=== PATIENT | male | born 1955 | race Hispanic/Latino ===

== ENCOUNTER 2021-06-20 23:27 | Emergency (ER) | payer SELFPAY ==
[~2021-06-20] VITALS: Ht 170.2 cm; Wt 72.0 kg
[~2021-06-20 23:27] MED LIST: FLEXERIL PO; LEVOTHYROXINE25 MCG PO; LIPITOR10 M1 PO; LISINOPRIL10 MG PO; METFORMIN1000 MG PO; NAPROSYN500 MG PO
[2021-06-21 00:38] LABS: IMMATURE GRANULOCYTES 0.5 % (0.0-5.0); MEAN CORPUSCULAR HGB CONC 30.9 g/dL CAL (32.0-36.0); NEUT# 6.11 thou/uL (1.82-7.42); RED BLOOD COUNT 2.87 mill/uL (4.70-6.10); RED CELL DISTRI WIDTH 14.8 % (11.5-15.5)
[2021-06-21 00:42] LABS: HEMATOCRIT 28.8 % (39.0-50.0); HEMOGLOBIN 8.9 g/dl (14.0-18.0); MEAN CELL VOLUME 100.3 fL CALC (80.0-100.0)
[2021-06-21 00:57] LABS: ALBUMIN 4.4 g/dL (3.2-5.0); TOTAL PROTEIN 7.8 g/dL (6.3-8.2)
[2021-06-21 00:59] LABS: ACT PARTIAL THROMBO TIME 25.2 SECONDS (20.0-32.5); PROTHROMBIN TIME 10.4 SECONDS (9.0-12.5)
[2021-06-21 01:04] LABS: BILIRUBIN, TOTAL 0.9 mg/dL (0.0-1.4)
[2021-06-21 01:36] LABS: POTASSIUM 7.6 mmol/l (3.5-5.1)
[2021-06-21 03:21] VITALS: BP 122/57
== END 2021-06-21 03:21 | disposition short-term general hospital (02) | DRG 640 ==
LOC: ED 23:27
PROVIDERS: Family Medicine
DX: E87.5 Hyperkalemia (principal); R09.02 Hypoxemia; N18.6 End stage renal disease; I12.0 Hypertensive chronic kidney disease with stage 5 chronic kidney disease or end stage renal disease; J81.1 Chronic pulmonary edema; Z99.2 Dependence on renal dialysis; Z20.822 Contact with and (suspected) exposure to COVID-19